=== PATIENT | male | born 1950 | race Caucasian/White ===

== ENCOUNTER 2017-10-30 20:29 | Emergency (ER) | payer MEDICARE ==
[2017-10-30] MEDS: NS 1,000 ML IV (21:30)
[2017-10-30] MEDS: ONDANSETRON 4MG/2ML VIAL (J2405) IV (21:36)
[2017-10-30] MEDS: HYDROmorphone HCL 1 MG/ML SYRINGE (J1170) IV (21:37)
[2017-10-30 21:56] LABS: BASO # 0.1 10^3/uL (0.0-0.2); BASO % 0.4 % (0.0-1.0); EOS # 0.3 10^3/uL (0.0-0.50); EOS % 1.3 % (0.0-3.0); HEMATOCRIT 43.4 % (42.0-52.0); HEMOGLOBIN 14.8 g/dl (14.0-18.0); IMMATURE GRANULOCYTE # 0.1 10^3/uL (0-0); IMMATURE GRANULOCYTE % 0.4 % (0-0); LYMPH # 1.5 10^3/uL (1.5-4.5); LYMPH % 7.7 % (24.0-44.0); MEAN CORPUSCULAR HEMOGLOBIN 32.6 pg (27.0-33.0); MEAN CORPUSCULAR HGB CONC 34.1 g/dl (32.0-36.5); MEAN CORPUSCULAR VOLUME 95.6 fl (80.0-96.0); MONO # 1.2 10^3/uL (0.0-0.8); MONO % 6.3 % (0.0-5.0); NEUTROPHILS # 16.2 10^3/uL (1.8-7.7); NEUTROPHILS % 83.9 % (36.0-66.0); PLATELET COUNT, AUTOMATED 266 10^3/uL (150-450); RED BLOOD COUNT 4.54 10^6/uL (4.30-6.10); RED CELL DISTRIBUTION WIDTH 13.2 % (11.5-14.5); WHITE BLOOD COUNT 19.4 10^3/uL (4.0-10.0)
[2017-10-30 22:01] LABS: KETONE, URINE AUTO RFX NEGATIVE (NEGATIVE); LEUKOCYTE ESTERASE UR AUTO RFX 2+ (NEGATIVE); MUCUS, URINE RFX SMALL (NEGATIVE); NITRITE, URINE AUTO RFX NEGATIVE (NEGATIVE); RBC, URINE AUTO RFX 9 /HPF (0-3); SPECIFIC GRAVITY UR AUTO RFX 1.019 (1.002-1.035); SQUAM EPITHELIAL CELL UR AURFX 0 /HPF (0-6)
[2017-10-30 22:02] LABS: WBC, URINE AUTO RFX 26 /HPF (0-3)
[2017-10-30 22:21] LABS: ALBUMIN 4.3 GM/DL (3.2-5.2); ALBUMIN/GLOBULIN RATIO 1.34 (1.00-1.93); ALKALINE PHOSPHATASE 69 U/L (45-117); ALT/SGPT 18 U/L (12-78); ANION GAP 5 MEQ/L (8-16); AST/SGOT 15 U/L (7-37); BILIRUBIN,DIRECT 0.1 MG/DL (0.0-0.2); BILIRUBIN,TOTAL 0.5 MG/DL (0.2-1.0); BLOOD UREA NITROGEN 17 MG/DL (7-18); CALCIUM LEVEL 9.3 MG/DL (8.8-10.2); CARBON DIOXIDE LEVEL 29 MEQ/L (21-32); CHLORIDE LEVEL 109 MEQ/L (98-107); CREATININE FOR GFR 0.99 MG/DL (0.70-1.30); GLOMERULAR FILTRATION RATE > 60.0 (>49); GLUCOSE, FASTING 104 MG/DL (70-100); LIPASE 150 U/L (73-393); POTASSIUM SERUM 4.5 MEQ/L (3.5-5.1); SODIUM LEVEL 143 MEQ/L (136-145); TOTAL PROTEIN 7.5 GM/DL (6.4-8.2)
[2017-10-30 22:21] LABS: LACTIC ACID SEPSIS PROTOCOL 1.5 MMOL/L (0.4-2.0)
[2017-10-30] MEDS ORDERED: ISOVUE-370 76% 100ML VIAL (Q9967) As Ordered (22:34)
[2017-10-31] MEDS: CEFTRIAXONE SOD 2 GM in APPROPRIATE DILUENT 1 EA IV (00:06)
[2017-10-31] MEDS: ACETAMINOPHEN TAB 650MG DOSE (2X325MG) PO (00:14)
== END 2017-10-31 01:24 | disposition home or self-care (01) ==
LOC: M ED 10-31 01:24
DX: N39.0 Urinary tract infection, site not specified (principal); N45.2 Orchitis; I25.10 Atherosclerotic heart disease of native coronary artery without angina pectoris; E78.4 Other hyperlipidemia; I10 Essential (primary) hypertension; F17.200 Nicotine dependence, unspecified, uncomplicated; Z98.61 Coronary angioplasty status; Z86.73 Personal history of transient ischemic attack (TIA), and cerebral infarction without residual deficits
CPT/HCPCS: J1170

== ENCOUNTER 2022-08-23 12:49 | Inpatient (IN) | payer MEDICARE ==
[~2022-08-23] VITALS: Ht 170.2 cm; Wt 54.5 kg
[~2022-08-23 12:49] MED LIST: ACET65TA; BABY81CH; BACT800T5 PO; CLAR5CHW; COUM1TAB18; LISI20TA5; PERC5TAB8; PLAV75TA2; SENN8.6T5; SIMV40TA2; TRIC1TAB
[2022-08-23 17:36] LABS: BASO % 0.1 % (0.0-1.0); HEMATOCRIT 28.8 % (42.0-52.0); HEMOGLOBIN 9.1 g/dl (13.5-17.5); LYMPH # 0.9 10^3/uL (1.5-5.0); LYMPH % 8.4 % (24.0-44.0); MEAN CORPUSCULAR HEMOGLOBIN 30.4 pg (27.0-33.0); MEAN CORPUSCULAR HGB CONC 31.6 g/dl (32.0-36.5); MEAN CORPUSCULAR VOLUME 96.3 fl (80.0-96.0); MONO # 0.5 10^3/uL (0.0-0.8); MONO % 4.3 % (2.0-8.0); NEUTROPHILS % 86.6 % (36.0-66.0); PLATELET COUNT, AUTOMATED 367 10^3/uL (150-450); RED BLOOD COUNT 2.99 10^6/uL (4.30-6.10); WHITE BLOOD COUNT 10.4 10^3/uL (4.0-10.0)
[2022-08-23 17:48] LABS: INR 1.06
[2022-08-23 17:49] LABS: PARTIAL THROMBOPLASTIN TIME 41.2 SECONDS (24.8-34.2)
[2022-08-23 18:12] LABS: ALBUMIN 1.4 G/DL (3.2-5.2); ALT/SGPT 62 U/L (7.0-40); BILIRUBIN,TOTAL 0.2 MG/DL (0.3-1.2); BLOOD UREA NITROGEN 11 MG/DL (9-23); CALCIUM LEVEL 7.5 MG/DL (8.3-10.6); CARBON DIOXIDE LEVEL 24 MMOL/L (20-31); CHLORIDE LEVEL 99 MMOL/L (98-107); CREATININE FOR GFR 0.36 MG/DL (0.70-1.30); GLOMERULAR FILTRATION RATE > 60.0 (>42); GLUCOSE, FASTING 91 MG/DL (74-106); SODIUM LEVEL 137 MMOL/L (136-145); TOTAL PROTEIN 5.5 G/DL
[2022-08-23 18:29] LABS: ERYTHROCYTE SEDIMENTATION RATE 128 mm/hr (0-20)
[2022-08-23] MEDS ORDERED: ISOVUE-370 76% 100ML VIAL As Ordered ONE (18:31)
[2022-08-23] MEDS ORDERED: MORPHINE 4 MG/ML 1ML VIAL/SYRINGE IV ONE (19:10)
[2022-08-23] MEDS ORDERED: NORTRIPTYLINE 10 MG CAP PO SCH (21:00)
[2022-08-23] MEDS ORDERED: ATOR40TA75 PO (22:16)
[2022-08-23] MEDS ORDERED: PERC10TA26 PO (22:16)
[2022-08-23] MEDS ORDERED: ENSULIQ9 PO (22:16)
[2022-08-23] MEDS ORDERED: DICL20GE TOP (22:16)
[2022-08-23] MEDS ORDERED: ACET-907 PO (22:16)
[2022-08-23] MEDS ORDERED: DOCU100C16 PO (22:16)
[2022-08-23] MEDS ORDERED: GABA-282 PO (22:16)
[2022-08-23] MEDS ORDERED: OMEP-173 PO (22:16)
[2022-08-23] MEDS ORDERED: FENO67CA12 PO (22:16)
[2022-08-23] MEDS ORDERED: METO1TAB87 PO (22:16)
[2022-08-23] MEDS ORDERED: NORT10CA2 PO (22:16)
[2022-08-23] MEDS ORDERED: MELA3TAB30 PO (22:16)
[2022-08-23] MEDS ORDERED: ASPE4PAD2 TOP (22:16)
[2022-08-23 22:25] LABS: RSV AMPLIFICATION NEGATIVE (NEGATIVE)
[2022-08-23] MEDS ORDERED: HOME MED LIST COMPLETE! XX SCH (22:50)
[2022-08-23] MEDS ORDERED: ACETAMINOPHEN TAB 650MG DOSE (2X325MG) PO PRN (23:55)
[2022-08-23] MEDS ORDERED: MOM 30ML SUSPENSION UDC PO PRN (23:55)
[2022-08-24] MEDS: oxyCODONE 5MG TAB PO PRN ×2 (02:29→13:40)
[2022-08-24 03:00] VITALS: BP 140/79
[2022-08-24] MEDS ORDERED: REMDESIVIR 200 MG in NS 250 ML IV ONE (04:00)
[2022-08-24 05:25] VITALS: BP 149/82
[2022-08-24] MEDS: MORPHINE 2 MG/ML 1ML VIAL IV PRN ×3 (05:36→09:36)
[2022-08-24] MEDS ORDERED: SODIUM CHLORIDE 0.9% INJ 10 ML SYR IV ONE (06:00)
[2022-08-24 06:03] LABS: BASO % 0.1 % (0.0-1.0); HEMATOCRIT 25.2 % (42.0-52.0); HEMOGLOBIN 8.1 g/dl (13.5-17.5); LYMPH # 0.8 10^3/uL (1.5-5.0); LYMPH % 6.2 % (24.0-44.0); MEAN CORPUSCULAR HEMOGLOBIN 30.7 pg (27.0-33.0); MEAN CORPUSCULAR HGB CONC 32.1 g/dl (32.0-36.5); MEAN CORPUSCULAR VOLUME 95.5 fl (80.0-96.0); MONO # 0.6 10^3/uL (0.0-0.8); MONO % 4.1 % (2.0-8.0); NEUTROPHILS % 89.1 % (36.0-66.0); PLATELET COUNT, AUTOMATED 325 10^3/uL (150-450); RED BLOOD COUNT 2.64 10^6/uL (4.30-6.10); WHITE BLOOD COUNT 13.5 10^3/uL (4.0-10.0)
[2022-08-24] MEDS ORDERED: HEPARIN SOD (PORCINE) 5000UNITS/ML 1ML VIAL/SYRINGE SC SCH (09:00)
[2022-08-24] MEDS ORDERED: PANTOPRAZOLE 40MG TAB (PROTONIX) PO SCH (09:00)
[2022-08-24] MEDS ORDERED: METOPROLOL TART 12.5 MG PER 1/2 TAB PO SCH (09:00)
[2022-08-24] MEDS ORDERED: LIDOCAINE 5% (LIDODERM) PATCH TD SCH (09:00)
[2022-08-24] MEDS ORDERED: ASPIRIN 81 MG CHEW TABLET PO SCH (09:00)
[2022-08-24] MEDS ORDERED: DOCUSATE SODIUM 100MG CAPSULE PO SCH (09:00)
[2022-08-24 09:07] VITALS: BP 144/66
[2022-08-24] MEDS: GABAPENTIN 300 MG CAP PO SCH ×2 (09:07→15:34)
[2022-08-24] MEDS ORDERED: ASPI81CH33 PO (12:12)
[2022-08-24] MEDS: MAG SULF 1GM/100ML (MAG RUN) 1 GM in IV 1 EA IV SCH ×2 (12:23→13:39)
[2022-08-24 12:54] LABS: APPEARANCE, URINE MANUAL CLEAR (CLEAR); COLOR, URINE MANUAL DK YELLOW (YELLOW)
[2022-08-24 12:55] LABS: SPECIFIC GRAVITY,URINE MANUAL 1.015 (1.002-1.035)
[2022-08-24 12:56] LABS: GLUCOSE, URINE (UA) MANUAL NEGATIVE (NEGATIVE); PROTEIN, URINE MANUAL 1+ mg/dL (NEGATIVE)
[2022-08-24 12:57] LABS: BILIRUBIN, URINE MANUAL 2+ (NEGATIVE); BLOOD URINE MANUAL TRACE (NEGATIVE); KETONE, URINE MANUAL 1+ mg/dL (NEGATIVE); LEUKOCYTE ESTERASE, URINE MAN POSITIVE (NEGATIVE); NITRITE, URINE MANUAL NEGATIVE (NEGATIVE); UROBILINOGEN, URINE MANUAL 1 MG mg/dl (NORMAL)
[2022-08-24 13:25] LABS: BACTERIA, URINE SMALL AMOUNT; HYALINE CAST, URINE NONE SEEN /lpf (0-1); RBC, URINE 0-1 /hpf (0-3); SQUAMOUS EPITHELIAL CELL URINE NONE SEEN /hpf (SMALL AMT)
[2022-08-24 14:00] VITALS: BP 108/65
[2022-08-24] MEDS ORDERED: LEVO750T14 PO (15:34)
[2022-08-24] MEDS ORDERED: ATORVASTATIN 20 MG TAB PO SCH (21:00)
[2022-08-25] MEDS ORDERED: REMDESIVIR 100 MG in NS 250 ML IV SCH (04:00)
[2022-08-25] MEDS ORDERED: SODIUM CHLORIDE 0.9% INJ 10 ML SYR IV SCH (05:00)
[2022-08-25] MEDS ORDERED: PREVNAR-20 VACCINE 0.5ML SYRINGE IM.IMMUN ONE (09:00)
[2022-08-25] MEDS ORDERED: FLUBLOK(EGG FREE)(QUAD)INFLUENZA VACC 0.5ML SYRINGE 18YRS & OLDER IM.IMMUN ONE (09:00)
== END 2022-08-24 16:44 | DRG 299 ==
LOC: EDBD 12:49 → M ED 12:49 → M ED INP 08-24 01:26 → ENRESERV 08-24 02:20 → M MSPAV 08-24 02:58
PROVIDERS: ADMIT Internal Medicine; ATTEND Internal Medicine
DX: I70.203 Unspecified atherosclerosis of native arteries of extremities, bilateral legs (principal); U07.1 COVID-19; A41.9 Sepsis, unspecified organism; J12.82 Pneumonia due to coronavirus disease 2019; E43 Unspecified severe protein-calorie malnutrition; L89.323 Pressure ulcer of left buttock, stage 3; L89.313 Pressure ulcer of right buttock, stage 3; L89.153 Pressure ulcer of sacral region, stage 3; I10 Essential (primary) hypertension; E78.5 Hyperlipidemia, unspecified; I77.1 Stricture of artery; Z89.519 Acquired absence of unspecified leg below knee; F17.210 Nicotine dependence, cigarettes, uncomplicated; Z96.652 Presence of left artificial knee joint; L97.529 Non-pressure chronic ulcer of other part of left foot with unspecified severity; D50.9 Iron deficiency anemia, unspecified; G62.9 Polyneuropathy, unspecified; K21.9 Gastro-esophageal reflux disease without esophagitis; E83.42 Hypomagnesemia; E88.09 Other disorders of plasma-protein metabolism, not elsewhere classified; M19.90 Unspecified osteoarthritis, unspecified site; Z79.899 Other long term (current) drug therapy; Z79.82 Long term (current) use of aspirin; Z89.611 Acquired absence of right leg above knee

== ENCOUNTER → 2022-08-24 | Outpatient (CLI) | payer MEDICARE ==
[~2022-08-24] MED LIST changes: +ACET-907 PO; +ACETAMINOPHEN TAB 650MG DOSE (2X325MG) PO PRN; +ALBUTEROL 90 MCG/ACT 8GM HFA INHALER INH PRN; +ALBUTEROL SULFATE 2.5MG/0.5ML INH NEB SOLN INH PRN; +ASPE4PAD2 TOP; +ASPI81CH33 PO; +ATOR40TA75 PO; +BEBTELOVIMAB 175MG 2ML VIAL (EUA) IV ONE; +DICL20GE TOP; +DOCU100C16 PO; +ENSULIQ9 PO; +EPINEPHrine INJ 1 MG/ML 1ML AMP IM PRN; +FENO67CA12 PO; +GABA-282 PO; +LEVO750T14 PO; +MELA3TAB30 PO; +METO1TAB87 PO; +NORT10CA2 PO; +NS 1,000 ML IV SCH; +OMEP-173 PO; +PERC10TA26 PO; +diphenhydrAMINE 50MG/ML VIAL IV PRN; +methylPREDNISolone 125MG 2ML VIAL IV PRN
[2022-08-24 15:21] VITALS: BP 118/70
[2022-08-24 15:22] VITALS: BP 118/70
[2022-08-24 16:32] VITALS: BP 129/70
== END ==
LOC: M OPCLI4 13:00
PROVIDERS: ATTEND Internal Medicine
DX: U07.1 COVID-19 (principal)